=== PATIENT | male | born 1945 | race Caucasian/White ===

== ENCOUNTER 2024-11-24 02:37 | Outpatient (CLI) | payer OTHER, SELFPAY ==
--- NOTE | 2024-11-24 14:00 | DI.US_ITS ---
APPROVED REPORT EXAM: Comprehensive 2D, Doppler, and color-flow Echocardiogram Patient Location: Out-Patient Dietitian Consultant: Bob Kaufman RDCS ([facility]) Indications: Asthma, myocardial infarction Other Information Study Quality: Fair Conclusion Normal left ventricular wall thickness and chamber size. Ejection fraction is 55%. No segmental wall motion abnormalities are noted Normal right ventricular size and function Both atria are normal in size There is no structural or hemodynamically significant valvular disease Wall motion Left Ventricle The left ventricle is normal size. The left ventricular systolic function is normal. The left ventricular ejection fraction is within the normal range. There is normal left ventricular wall thickness. There is normal LV segmental wall motion. There is no ventricular septal defect visualized. LVEF is 55%. Right Ventricle The right ventricle is normal size. The right ventricular systolic function is normal. There is normal right ventricular wall thickness. Atria The left atrium size is normal. The right atrium size is normal. The interatrial septum is intact with no evidence for an atrial septal defect. Aortic Valve The aortic valve is normal in structure. Aortic valve is trileaflet. There is no aortic valvular stenosis. No aortic regurgitation is present. Mitral Valve The mitral valve is normal in structure. No evidence of mitral valve stenosis. There is no mitral valve regurgitation noted. Tricuspid Valve The tricuspid valve is normal in structure. There is no tricuspid valve stenosis. Trace to mild tricuspid regurgitation. Pulmonic Valve The pulmonary valve is normal in structure. There is no pulmonic valvular stenosis. There is no pulmonic valvular regurgitation. Great Vessels The aortic root is normal in size. The ascending aorta is normal in size. Aortic arch is normal in caliber. IVC is normal in size and collapses >50% with inspiration. Pericardium There is no pericardial effusion. 2D Dimensions IVSD d PLAX 0.84 cm M: 0.6-1.2 Ao Root d 3.08 cm M: 3.1 - 3.7 LVPW d PLAX 0.79 cm M: 0.6 - 1.2 Ao Asc Diam d 3.26 cm M: 2.6 - 3.4 LVID d PLAX 5.99 cm M: 4.2 - 5.8 LVDs 4.23 cm M: 2.5 - 4.0 LV EF Teichholz 55.4 % FS 29.34 % LV EDV (Teich) 179.4 mL LV ESV (Teich) 80.1 mL Stroke Vol Index (Teich) 53.41 Auto EF LV EDV A4C 138.5 mL LV EDV A2C 129.6 mL LV EDV BP 138.4 mL LV ESV A4C 69.6 mL LV ESV A2C 61.2 mL LV ESV BP 64.0 mL LVEF(%) A4C 49.7 % LVEF(%) A2C 52.8 % LVEF(%) BP 53.7 % LV SV A4C 68.9 ml LV SV A2C 68.4 ml LV SV BP 74.4 ml LV CO A4C 5.0 L/min LV CO A2C 4.9 L/min LV CO BP 4.9 L/min HR A4C 73.03 BPM HR A2C 71.01 BPM LV EDV Index (BP) LA Volume LA Length A4C 4.4 cm LA Length A2C LA Area A4C s 12.90 cm2 LA Area A2C s LA Vol A4C A-L 32.21 mL LA Vol A2C A-L LA Vol Biplane A-L LA Vol A4C MOD 31.5 mL LA Vol A2C MOD LA Vol BP MOD RA Volume RA Area A4C 7.4 cm2 RA ESV A4C (A-L) 10.9mL RA Vol/BSA A4C A-L RA Length A4C 4.3 cm RA ESV A4C (MOD) 10.6mL LV Diastology MV E' medial 0.051 (>0.07 m/s) MV E Vmax 0.53 (0.4-1.3 m/s) MV E/E' MED 10.38 (<14) MV A Vmax 0.85 (0.4-1.3 m/s) MV E' lateral 0.082 (>0.1 m/s) E/A Ratio 0.6 MV E/E' LAT 6.53 (<14) MV E' Average 0.067 m/s MV E/E'(average) 8.02 Aortic Valve AoV Vmax 1.06 m/s LVOT Vmax 0.73 m/s AoV Peak Grad 4.5 mmHg LVOT Peak Grad 2.1 mmHg AoV Area (Vmax) 2.67 cm2 LVOT VTI 0.158 m AoV VTI 0.233 m LVOT Mean Grad 1.1 mmHg AoV Mean Walt. 0.69 m/s LVOT SV 61.57 mL AoV Mean Grad 2.2 mmHg LVOT Diam s 2.20 cm AoV Area (VTI) 2.64 cm2 AV Regurg Peak Gr. 4.51 mmHg Velocity Ratio 0.69 Mitral Valve MV DT 211 (160-240 msec) Pulmonary Valve PV Vmax 1.21 (0.5-1.5 m/s) RVOT Vmax 0.42 m/s PV Peak Grad 5.8 mmHg RVOT Peak Gr. 0.7 mmHg PV Mean Walt 0.88 m/s RVOT VTI 0.090 m PV Mean Grad 3.3 mmHg RVOT Mean Gr. 0.4 mmHg
== END 2024-11-24 02:57 ==
PROVIDERS: Visit Provider Chiropractor
DX: J45.998 Other asthma (principal); I25.2 Old myocardial infarction
CPT/HCPCS: 93306